=== PATIENT | female | born 1985 | race Caucasian/White ===

== ENCOUNTER 2023-10-09 15:16 | Observation (INO) | payer OTHER, SELFPAY ==
--- NOTE | ~2023-10-09 | NM_ITS ---
Lexiscan Myocardial perfusion study Indication: Chest pain, abnormal troponin Technique: The patient was brought in for a Lexiscan perfusion study on 10/11/2023 and was injected 0.4 mg of Lexiscan intravenously. Within a minute of this injection 30 mCi of sestamibi was given intravenously. Images were obtained using the SPECT gamma camera interlaced with the gating device. Images were obtained in supine position. Resting perfusion study was performed on 10/10/2023. Patient was administered 30 mCi of sestamibi intravenously at rest. Images were then obtained in supine position. Images were processed with the software and compared side to side in short axis, horizontal long axis and vertical long axis views. Total DLP 127mGy-cm. Findings: Raw acquisition reviewed. The stress perfusion study showed mildly reduced tracer uptake in the basal part of inferoseptal wall, but could also be at valve plane. No major change with CT attenuation correction. The gated study shows normal LV systolic function with calculated LVEF of 69%. LV cavity is normal in size. The gated study shows normal wall thickening and contraction of segments. Resting study shows mildly reduced tracer uptake in the basal part of inferoseptal wall, possible valve plane. Gating at rest reveals normal wall motion with ejection fraction at 61%. The findings are consistent with mild fixed basal inferoseptal defect. No clear reversible defects. NM/NM timmy perf SPECT rest & str Impression: 1. Myocardial perfusion imaging study shows no evidence of ischemia. Mild fixed basal inferoseptal defect, possibly artifactual. Less likely true nontransmural infarct. 2. Gated LVEF is 69% during stress and 61% during rest. 3. Transient ischemic dilatation not present. EKG component of the test reported separately.
--- NOTE | ~2023-10-09 | XR_ITS ---
EXAMINATION: XR CHEST CLINICAL INFORMATION: Left arm pain COMPARISON: None available. TECHNIQUE: Frontal view of the chest was obtained. FINDINGS: No significant abnormality is noted involving the heart, lungs, mediastinum, bony thorax or soft tissues. XR/XR chest 1V IMPRESSION: Unremarkable examination.
[2023-10-09 15:19] VITALS: BP 145/85; PULSE 75; RESP 18; TEMP 36.5; O2SAT 100; BMI 34.3
--- NOTE | 2023-10-09 15:20 | ED_ITS ---
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 Brown HPI narrative: 38-year-old female with history of fibromyalgia and arthritis who described herself as anxious person presented with left arm pain after an argument with her children last night, pain has been intermittent localized to the left arm feels like pressure patient also has been having numbness in the left arm the pain is associated with feeling palpitation. Patient had similar presentation few years ago in [place] patient reported that she had to stay in the hospital for 1 day rule out heart disease further records are not available at the moment. No recent travel, no lower extremity swelling or tenderness. Related Data Allergies Allergy/AdvReac Type Severity Reaction Status Date / Time No Known Allergies Allergy Verified 10/09/23 15:23 Review of Systems 2 Review of Systems: All other systems are reviewed and are negative Constitutional: Reports as per HPI and Reports no additional constitutional complaints Eyes: Reports as per HPI and Reports no additional eye complaints Reports system reviewed and no additional complaints, except as documented Cardiovascular: Reports as per HPI and Reports no additional cardiovascular complaints Respiratory: Reports as per HPI and Reports no additional respiratory complaints Gastrointestinal: Reports as per HPI and Reports no additional gastrointestinal complaints Genitourinary: Reports no additional female genitourinary complaints Musculoskeletal: Reports no additional musculoskeletal complaints Skin/Breast: Reports system reviewed and no additional complaints, except as docu Psychiatric: Reports no additional psychiatric complaints Endocrine: Reports no additional endocrine complaints Hematologic/Lymphatic: Reports no additional hematologic/lymphatic complaints Allergic/Immunologic: Reports no additional allergic/immunologic complaints Reports system reviewed and no additional complaints, except as documented and Reports Abnormal speech present [facility] Past Medical History Medical History (Updated 10/09/23 @ 22:31 by Aguila Brown MD) Hypertension Social History Social History Advance Directives: No Do you have a plan to hurt others: No Plan Physical Exam ED Vital Signs: Vital Signs - 24 hr 10/09/23 15:19 10/09/23 18:11 Temperature 97.7 F 98.3 F Pulse Rate 75 75 Respiratory Rate 18 16 Blood Pressure 145/85 H 135/84 Pulse Oximetry 100 98 Oxygen Delivery Method Room Air Room Air BMI result Body Mass Index 34.3 Vital signs have been reviewed and appear to be correct. Blood pressure elevated. Heart rate normal. Respiratory rate normal. Temperature normal. Oxygen saturation normal. Appearance: Anxious, Alert. Oriented X3. No acute distress. Head: Normal external exam. Normocephalic. Atraumatic. No Tejeda signs noted. No raccoon eyes noted Eyes: PERRLA. EOMI. Conjunctiva and sclera normal. Eyelids normal. ENT: TM's Normal. Pharynx normal. Uvula midline. Moist mucous membranes. No trismus noted. No drooling noted. No muffled voice noted. Neck: Normal inspection. Neck supple. FROM. No adenopathy. Thyroid Normal. No meningeal signs. No neck mass noted. CVS: Normal heart rate and rhythm. Heart sound normal. No murmurs noted. Pulses normal throughout. Respiratory: No respiratory distress. Painless inspiration. Breath sounds normal. No wheezes/rales/rhonchi noted. Chest nontender. No accessory muscle usage noted or decreased air movement noted. Abdomen: Soft and nontender. Bowel sounds normal in all 4 quadrants. No distention noted. No organomegaly noted. No visible injury noted. Back: No CVA tenderness. Full range of motion noted. Skin: Skin warm and dry. Normal skin color. Normal skin turgor. No rashes/lesions/lacerations noted. Extremities: No lower extremity edema. Extremities exhibit normal range of motion. Extremities nontender. Neuro: Oriented X 3. Cranial nerve exam: II-XII are grossly intact No motor deficit. No sensory deficit. Reflexes normal. Course Course Course Narrative: RME performed by Maribel Anand PA-C. Patient is a 38 year old assigned female at presenting to the emergency department with left sided arm pain and palpitations. Detailed physical exam and review of systems are deferred to the assistant prosecuting attorney. EKG, labs, imaging, and swabs ordered. Patient placed back in the waiting room pending room availability and results. Reevaluation(s) Reevaluation #1: Appear anxious person came in with left arm pain and palpitation, troponin is slightly elevated, patient with persistent left arm pain and tingling. Case discussed with Dr. Hopkins recommended to admit for observation, echo in the morning, and aspirin heparin is not recommended at the moment. Case discussed with Dr. Lynn will admit the patient. Patient noted to be anemic no old labs to compare her patient stated that she gets heavy periods due to uterine polyps that she follow with her OBGYN, otherwise patient declined rectal bleeding. Aspirin has been administrated in the emergency department. Time: 22:25 Medical Decision Making Differential Diagnosis Differential Diagnoses: The differential diagnosis associated with the presentation includes (Fibromyalgia, cervical radiculopathy, ACS, pulmonary embolism, pleural effusion, pneumothorax, pneumonia, electrolyte derangement, severe anemia.) Admission/Observation Consideration of admission/observation: Escalation of care including admission/observation considered Consult Healthcare Provider Management of the patient was discussed with: Hospitalist (Dr. Mojica) and Letter Of Credit Document Examiner (Dr. Hopkins) Lab Data MDM Lab Attestation statement: I reviewed the patient's lab results. 10/09/23 16:07 10/09/23 16:07 Labs: Lab Results 10/09/23 10/09/23 10/09/23 Range/Units 16:07 18:24 20:55 WBC 5.2 (4.8-10.8) X10*3/uL RBC 4.01 L (4.20-5.50) X10*6/uL Hgb 9.1 L (12.0-16.0) g/dl Hct 30.4 L (37.0-47.0) % MCV 75.8 L (80.0-98.0) fL MCH 22.7 L (27.0-33.0) pg MCHC 29.9 L (31.0-35.0) g/dl RDW 17.7 H (11.0-16.0) % Plt Count 365 (160-400) X10*3/uL MPV 10.0 (9.4-12.3) fL Immature Gran % (Auto) 0.2 (0.0-0.4) % Neut % (Auto) 70.5 (45-73) % Lymph % (Auto) 22.3 (20-40) % [place] % (Auto) 6.4 (2-11) % Eos % (Auto) 0.0 (0-4) % Baso % (Auto) 0.6 (0-2) % Lymph # (Auto) 1.2 (1.2-4.9) X10*3/uL [place] # (Auto) 0.3 (0.1-1.2) X10*3/uL Eos # (Auto) 0.0 (0.0-0.4) X10*3/uL Baso # (Auto) 0.0 (0.0-0.2) X10*3/uL Abs Immat Gran (auto) 0.01 (0.00-0.03) X10*3/uL Absolute Neuts (auto) 3.6 (2.0-8.3) x10*3/uL Absolute Nucleated RBC 0.000 (0.0-0.012) X10*3/uL Nucleated RBC % (auto) 0.0 (0.0-0.2) /100WBC PT 11.4 (11.1-13.3) SEC INR 0.9 (0.9-1.1) APTT 28.1 (26.0-36.8) SEC Sodium 137 (135-145) mmol/L Potassium 3.8 (3.3-5.1) mmol/L Chloride 108 (96-108) mmol/L Carbon Dioxide 23 (22-29) mmol/L Anion Gap 10 L (12-20) BUN 13 (9-16) mg/dL Creatinine 0.83 (0.5-1.4) mg/dL Estim Creat Clear Calc 103.8 Estimated GFR > 60 Random Glucose 91 (60-115) mg/dL Calcium 8.7 (8.4-10.2) mg/dL Magnesium 2.0 (1.6-2.6) mg/dL Total Bilirubin 0.4 (0.0-1.0) mg/dL AST 15 (5-31) U/L ALT 10 (0-31) U/L Alkaline Phosphatase 62 (39-117) U/L Troponin I High Sens 25.8 H 29.2 H (<3.5-17.0) ng/L Total Protein 7.5 (6.5-8.0) g/dL Albumin 4.0 (3.5-5.0) g/dL Beta HCG, Quant < 2 mIU/mL Urine Color Yellow Urine Appearance Clear Urine pH 6.5 (5.0-9.0) Ur Specific [place] <= 1.005 (1.005-1.025) Urine Protein Negative (Neg-Trace) mg/dL Urine Glucose (UA) Negative (Negative) mg/dL Urine Ketones Negative (Negative) mg/dL Urine Blood Moderate (2+) H (Negative) Urine Nitrite Negative (Negative) Ur Leukocyte Esterase Negative (Negative) Urine RBC 0-2 (0-2) /HPF Urine WBC 0-5 (0-5) /HPF Ur Squamous Epith Cells 0-2 (0-2) /HPF Urine Bacteria None Seen (None Seen) Hyaline Casts 0-2 (0-2) /LPF Influenza Type A (PCR) NEGATIVE (Negative) Influenza Type B (PCR) NEGATIVE (Negative) RSV RNA Qual (PCR) NEGATIVE (Negative) SARS-CoV-2 RNA (RT-PCR) NEGATIVE (Negative) Independent Interpretation I performed an independent interpretation of an: EKG (Normal sinus rhythm at 74 beats per minute, normal intervals, no ST-T changes.) and Plain X-Ray (Chest: No acute intrathoracic pathology.) Radiology Impression Discussion of test interpretation with radiology: I have reviewed the radiologist's reading. Chronic Conditions Patient?s care impacted by: Other (Fibromyalgia) Discharge Plan Discharge Clinical Impression: Palpitations, Atypical chest pain, Elevated troponin Patient Disposition: Admitted As Inpatient Print Language: Latvian
--- NOTE | 2023-10-09 15:21 | ECG_ITS ---
Test Reason : CP Blood Pressure : / mmHG Vent. Rate : 071 BPM Atrial Rate : 071 BPM P-R Int : 152 ms QRS Dur : 088 ms QT Int : 412 ms P-R-T Axes : 113 -04 000 degrees QTc Int : 447 ms Normal sinus rhythm Minimal voltage criteria for LVH, may be normal variant ( R in aVL ) Borderline ECG No previous ECGs available Referred By: Maribel Anand Electronically Signed By:OSMAN XIONG
[2023-10-09 16:12] LABS: MANUAL DIFF FLAG NO
[2023-10-09 16:13] LABS: Basophils Percent Auto 0.6 % (0-2); Hematocrit 30.4 % (37.0-47.0); Hemoglobin 9.1 g/dl (12.0-16.0); Imm Gran Abs Auto 0.01 X10*3/uL (0.00-0.03); Imm Gran Pct Auto 0.2 % (0.0-0.4); Lymphocytes Absolute Auto 1.2 X10*3/uL (1.2-4.9); Lymphocytes Percent Auto 22.3 % (20-40); Mean Corpuscular HGB Conc 29.9 g/dl (31.0-35.0); Mean Corpuscular Hemoglobin 22.7 pg (27.0-33.0); Mean Corpuscular Volume 75.8 fL (80.0-98.0); Monocytes Absolute Auto 0.3 X10*3/uL (0.1-1.2); Monocytes Percent Auto 6.4 % (2-11); Neutrophils Absolute Auto 3.6 x10*3/uL (2.0-8.3); Neutrophils Percent Auto 70.5 % (45-73); Platelet Count 365 X10*3/uL (160-400); Red Blood Count 4.01 X10*6/uL (4.20-5.50); Red Cell Distribution Width 17.7 % (11.0-16.0); White Blood Count 5.2 X10*3/uL (4.8-10.8)
[2023-10-09 16:18] LABS: INTERNATIONAL NORM RATIO 0.9 (0.9-1.1); Prothrombin Time 11.4 SEC (11.1-13.3)
[2023-10-09 16:21] LABS: Partial Thromboplastin Time 28.1 SEC (26.0-36.8)
[2023-10-09 16:36] LABS: Alanine Aminotransferase 10 U/L (0-31); Alkaline Phosphatase 62 U/L (39-117); Anion Gap 10 (12-20); Aspartate Amino Transferase 15 U/L (5-31); Bilirubin Total 0.4 mg/dL (0.0-1.0); Blood Urea Nitrogen 13 mg/dL (9-16); Calcium 8.7 mg/dL (8.4-10.2); Carbon Dioxide 23 mmol/L (22-29); Chloride 108 mmol/L (96-108); Creatinine Clr Calc Pharmacy 103.8; Estimated Glomerular Filt Rate > 60; Glucose Random 91 mg/dL (60-115); Potassium 3.8 mmol/L (3.3-5.1); Sodium 137 mmol/L (135-145); Total Protein 7.5 g/dL (6.5-8.0)
[2023-10-09 16:37] LABS: HCG Quantitative < 2 mIU/mL; Troponin-I High Sensitivity 25.8 ng/L (<3.5-17.0)
[2023-10-09 16:51] LABS: Influenza A PCR NEGATIVE (Negative); Influenza B PCR NEGATIVE (Negative); Resp Syncy Virus RNA Qual PCR NEGATIVE (Negative); SARS COV2 PCR INHOUSE NEGATIVE (Negative)
[2023-10-09 18:11] VITALS: BP 135/84; PULSE 75; RESP 16; TEMP 36.8; O2SAT 98
[2023-10-09 19:11] LABS: Troponin-I High Sensitivity 29.2 ng/L (<3.5-17.0)
[2023-10-09 21:07] LABS: Appearance Urine Clear; Color Urine Yellow; Glucose Urine UA Negative (Negative); Leukocyte Esterase Urine Negative (Negative); Nitrite Urine Negative (Negative); PH 6.5 (5.0-9.0); Specific Gravity - Urine <= 1.005 (1.005-1.025); UMIC TRIGGER UACC YES; Urine Blood Moderate (2+) (Negative); Urine Ketones Negative (Negative); Urine Protein Negative (Neg-Trace)
[2023-10-09 21:17] LABS: Bacteria Urine None Seen (None Seen); Hyaline Casts Urine 0-2 /LPF (0-2); RBC Urine 0-2 /HPF (0-2); Squamous Epithelial Cell Urine 0-2 /HPF (0-2); WBC Urine 0-5 /HPF (0-5)
[2023-10-09 22:08] VITALS: BP 107/62; PULSE 157; RESP 16; TEMP 36.7; O2SAT 100
--- NOTE | 2023-10-09 22:23 | ECG_ITS ---
Test Reason : TACHYCARDIA Blood Pressure : / mmHG Vent. Rate : 074 BPM Atrial Rate : 074 BPM P-R Int : 146 ms QRS Dur : 080 ms QT Int : 386 ms P-R-T Axes : 007 003 018 degrees QTc Int : 428 ms Normal sinus rhythm Normal ECG When compared with ECG of 09-OCT-2023 15:55, No significant change was found Referred By: Aguila Brown Electronically Signed By:OSMAN XIONG
--- NOTE | 2023-10-09 22:23 | P.HPHOSP_ITS ---
History of Present Illness Date of Service: 10/09/23 Chief Complaint: Arm pain This is a 38-year-old female with pertinent history of mood disorder, fibromyalgia, arthritis, deficiency anemia who presents to the emergency department for evaluation of left arm pain. Patient states it started after she had an argument with her brother yesterday. It lasted for about half an hour and subsided. On the day of presentation, patient again had an argument with the children and her pain returned in the left arm. Patient states her left arm feels heavy. No sweating, nausea or vomiting. No chest discomfort. Admits palpitations along with the left arm pain. Patient states 4 years ago she had a similar presentation and heart catheterization done in [place]. Two years ago patient's blood work revealed elevated troponin in [place] and she was admitted to the hospital. Patient left AMA before echocardiogram can be done. No fever, chills, shortness of breath, abdominal pain, changes in urinary or bowel habits. In the emergency department, troponin was found to be 25. No EKG changes. Cardiology was consulted who requested admission for observation Review of Systems 2 Constitutional: Constitutional: Reports no additional constitutional complaints Respiratory: Respiratory: Reports no additional respiratory complaints Gastrointestinal: Gastrointestinal: Reports no additional gastrointestinal complaints Genitourinary: Genitourinary: Reports no additional female genitourinary complaints [facility] Medical History Iron deficiency anemia Fibromyalgia Mood disorder Pertinent family history: No family history of early CAD Social History Advance Directives: No Do you have a plan to hurt others: No Plan Meds Allergies Allergy/AdvReac Type Severity Reaction Status Date / Time No Known Allergies Allergy Verified 10/09/23 15:23 Physical Exam 2 Vital Signs and Narrative: Vital Signs: Last Vital Signs Temp 98.3 F 10/09/23 18:11 Pulse 75 10/09/23 18:11 Resp 16 10/09/23 18:11 BP 135/84 10/09/23 18:11 Pulse Ox 98 10/09/23 18:11 O2 Del Method Room Air 10/09/23 18:11 BMI result Body Mass Index 34.3 Middle-aged female lying in bed in no distress Neck supple, no JVD Regular rate and rhythm, S1-S2 heard Regular breath sounds bilaterally, no wheezing or crackles appreciated Abdomen soft nontender, no guarding, no rigidity Patient is awake, alert and oriented to self, place, time and person ; no focal motor deficit Psych: Normal mood No pedal edema Results Labs 10/09/23 16:07 10/09/23 16:07 Labs: Laboratory Results - last 24 hr 10/09/23 10/09/23 10/09/23 16:07 18:24 20:55 MCV 75.8 L MCH 22.7 L MCHC 29.9 L RDW 17.7 H Plt Count 365 MPV 10.0 Immature Gran % (Auto) 0.2 Neut % (Auto) 70.5 Lymph % (Auto) 22.3 [place] % (Auto) 6.4 Eos % (Auto) 0.0 Baso % (Auto) 0.6 Lymph # (Auto) 1.2 [place] # (Auto) 0.3 Eos # (Auto) 0.0 Baso # (Auto) 0.0 Abs Immat Gran (auto) 0.01 Absolute Neuts (auto) 3.6 Absolute Nucleated RBC 0.000 Nucleated RBC % (auto) 0.0 PT 11.4 INR 0.9 APTT 28.1 Anion Gap 10 L Estim Creat Clear Calc 103.8 Estimated GFR > 60 Random Glucose 91 Calcium 8.7 Magnesium 2.0 Total Bilirubin 0.4 AST 15 ALT 10 Alkaline Phosphatase 62 Troponin I High Sens 25.8 H 29.2 H Total Protein 7.5 Albumin 4.0 Beta HCG, Quant < 2 Urine Color Yellow Urine Appearance Clear Urine pH 6.5 Ur Specific [place] <= 1.005 Urine Protein Negative Urine Glucose (UA) Negative Urine Ketones Negative Urine Blood Moderate (2+) H Urine Nitrite Negative Ur Leukocyte Esterase Negative Urine RBC 0-2 Urine WBC 0-5 Ur Squamous Epith Cells 0-2 Urine Bacteria None Seen Hyaline Casts 0-2 Influenza Type A (PCR) NEGATIVE Influenza Type B (PCR) NEGATIVE RSV RNA Qual (PCR) NEGATIVE SARS-CoV-2 RNA (RT-PCR) NEGATIVE Assessment and Plan (1) Elevated troponin: Status: Acute (2) Palpitations: Status: Acute Plan This is a 38-year-old female with pertinent history of mood disorder, fibromyalgia, arthritis, deficiency anemia who presents to the emergency department for evaluation of left arm pain. #. Palpitations and left arm pain. Will admit patient with cardiac monitoring. Troponin found to be 25.8>>29.2 in the ER. Cardiology was consulted in the ER who requested admission for observation. Patient given aspirin. Will trend troponin and obtain echocardiogram. Appreciate cardiology assistance #. Mood disorder: Continue home mood stabilizers #. Iron deficiency anemia due to menorrhagia: On iron supplementation Med rec pending DVT prophylaxis: Lovenox Full code Quality Stroke Does the patient have a stroke diagnosis?: No VTE Prior VTE?: No VTE Risk Level:: Medical - moderate - high VTE Device Contraindication: Treatment Not Indicated VTE Drug Contraindication: N/A - Med Ordered
[2023-10-09] MEDS: Aspirin 325 MG TABLET PO (22:41)
[2023-10-09 22:51] VITALS: PULSE 78; RESP 17; O2SAT 98
--- NOTE | 2023-10-09 22:51 | PC.NURSE ---
Reports left arm pain starting yesterday and worsening today, denies any trauma or injury. Reports she had a stressful event today and pain worsened significantly. Also reports palpitations intermittently and feeling overall unwell. Alert and oriented, breathing even and unlabored, skin warm and dry. NSR on bedside monitor tech.
[2023-10-09 23:00] LABS: D Dimer High Sensitivity 222 NG/ML
[2023-10-10] VITALS (10 sets, daily range): BP systolic 103–128; BP diastolic 63–85; PULSE 63–78; RESP 12–20; TEMP 36.5–36.7; O2SAT 97–100; BMI 35.5
--- NOTE | 2023-10-10 | CA_ITS ---
Acquisition Time: 2023-10-11 10:59:04 Total Exercise Time: 00:02:00 Test Indications: CP Medications: SEE H Protocol: LEXISCAN Max HR: 139 BPM 76% of Pred: 182 BPM Max BP: 100/062 mmHG Max Work Load: 1.0 METS Pharmaoclogical stress test with Lexiscan while sitting and kicking her legs, with mild SOB, no chest discomfort, without arrhythmias, with normotenisve response to injection, with nondiagnoisitic EKGs. Aminophylline 75mg IVP given to reverse Lexiscan. Nuclear images pending. Test reviewed with Dr. Hopkins. Referred By: Carlito Hopkins Overread By: Lissette Mckoy
[2023-10-10] MEDS: 0.9 % Sodium Chloride Flush 3 ML SYRINGE IVFLUSH ×4 (01:07→21:20)
[2023-10-10] MEDS: traMADoL HCL 50 MG TABLET PO (01:47)
--- NOTE | 2023-10-10 01:53 | PC.NURSE ---
pt reports 11/17 weird pain, hard to describe, intermittent left sided chest pain radiating under armpit. Dr. Mojica made aware, Pt medicated per JUN.
[2023-10-10 06:21] LABS: Hematocrit 29.7 % (37.0-47.0); Hemoglobin 8.7 g/dl (12.0-16.0); Mean Corpuscular HGB Conc 29.3 g/dl (31.0-35.0); Mean Corpuscular Hemoglobin 22.2 pg (27.0-33.0); Mean Corpuscular Volume 75.8 fL (80.0-98.0); Mean Platelet Volume 10.8 fL (9.4-12.3); Platelet Count 371 X10*3/uL (160-400); Red Blood Count 3.92 X10*6/uL (4.20-5.50); Red Cell Distribution Width 17.7 % (11.0-16.0); White Blood Count 6.3 X10*3/uL (4.8-10.8)
[2023-10-10 06:28] LABS: Anion Gap 12 (12-20); Blood Urea Nitrogen 12 mg/dL (9-16); Calcium 9.1 mg/dL (8.4-10.2); Carbon Dioxide 23 mmol/L (22-29); Chloride 109 mmol/L (96-108); Creatinine Clr Calc Pharmacy 100.2; Estimated Glomerular Filt Rate > 60; Glucose Random 85 mg/dL (60-115); Potassium 3.7 mmol/L (3.3-5.1); Sodium 140 mmol/L (135-145)
[2023-10-10 06:38] LABS: Troponin-I High Sensitivity 25.6 ng/L (<3.5-17.0)
--- NOTE | 2023-10-10 07:00 | CA_ITS ---
Transthoracic Echocardiogram Patient (Last, First, Middle): Lynette Sotomayor, Gender: Female Date of : 1985 Age: 38 Procedure Date: 10/10/2023 Procedure Type: Transthoracic Echocardiogram Location: ER Height: 167.64 cm Weight: 93.44 kg BSA: 2.03 m2 Heart Rate: 67 bpm BP: 121 / 74 mmHg Applications Specialist: Referring MD: Zoltan Mojica MD Symptoms: elevated troponin Study Quality: Fair ECG Rhythm: Sinus Conclusions: - The left ventricular systolic function is normal. The calculated ejection fraction is 57% by biplane method. - Possible basal inferoseptal hypokinesis in some views but cannot exclude artifactual findings. - No obvious valvular pathology seen on this study. Findings Left Ventricle Normal left ventricular cavity size. There is normal left ventricular wall thickness. The left ventricular systolic function is normal. The calculated ejection fraction is 57% by biplane method. Diastolic function is normal for age. Possible basal inferoseptal hypokinesis in some views but cannot exclude artifactual findings. Right Ventricle Normal right ventricular cavity size and systolic function. Atria Both atria are normal in size. Aortic Valve There is a normal trileaflet aortic valve. There is no aortic valve stenosis. There is no aortic valve regurgitation. Mitral Valve The mitral valve appears normal. There is trace mitral valve regurgitation. There is no mitral valve stenosis. Pulmonic Valve The pulmonic valve is likely normal. Tricuspid Valve There is trace tricuspid valve regurgitation. There is no evidence of pulmonary hypertension. Great Vessels The asc aorta is normal in size. Venous The inferior vena cava is normal in size and collapses greater than 50% with inspiration. Pericardium/Pleural There is no evidence of pericardial effusion. Prior Study Comparison No prior study available for comparison. Recommendations, Care & Conclusions No obvious valvular pathology seen on this study. Measurements 2D Linear Measurements IVSd: 1.00 0.6-0.9/0.6-1.0 cm LVIDd: 4.35 3.9-5.3/4.2-5.9 cm LVIDd Index: 2.14 2.4-3.2/2.2-3.1 cm/m2 LVIDs: 3.10 2.0-3.6 cm LVPWd: 1.00 0.7-1.1 cm LA Diam: 4.10 2.7-3.8/3.0-4.0 cm LAIDs Index: 2.02 1.5-2.3 cm/m2 LV Mass: 179.55 67-162/88-224 g LV Mass Index: 88.45 43-95/49-115 g/m2 LVOT Diam: 2.30 3.0+(-)1.3 cm 2D Systolic Function EF 4C: 61.40 >55% EF 2C: 55.60 >55% EF BiP: 57.30 >55% Mitral Valve MV Pk E: 0.77 MV PK A: 0.57 MV Decel Time: 135.00 E/A: 1.40 E'Lateral: 14.00 E'Medial: 10.60 E/E' Med: 7.20 E/E' Lat: 5.50 PHT: 39.00 MVA PHT: 5.64 Decel [place]: 5.69 Aortic Valve AoV Pk Danny: 1.28 AoV Mn Danny: 0.89 AoV VTI: 0.34 AoV Pk Grad: 7.00 Aov Mn Grad: 4.00 EUFEMIA Cont.VTI: 2.32 LVOT LVOT Pk Danny: 0.84 LVOT Mn Danny: 0.53 LVOT VTI: 0.19 LVOT Pk Grad: 3.00 LVOT Mn Grad: 1.00 LVOT Diam: 2.30 LVOT Area: 4.15 Diastolic Function MV Pk E: 0.77 MV Pk A: 0.57 E/A: 1.40 E'Medial: 10.60 E/E' Med: 7.20 E' Laterial: 14.00 E/E' Lat: 5.50 Right Ventricle TAPSE (mm): 24.90 Tricuspid Valve TR Pk Danny: 2.21 TR Pk Grad: 20.00 Great Vessels Aorta Sinus of Valsalva: 2.80 2.0-3.5 cm Ao Asc: 2.90 2.1-3.4 cm Pulmonary Valve PV Pk Danny: 0.89 Peak PV Grad: 3.00 Updated in Other Vendor System with Status of Final Carlito Hopkins MD electronically signed on 10/10/2023 9:47:11 AM with status of Final
--- NOTE | 2023-10-10 07:39 | PC.NURSE ---
pateint provided with breakfast tray, requesting to use bathroom at this time, disconnected from monitor and ambulatory with steady gait to bathroom independantly at this time
--- NOTE | 2023-10-10 07:44 | PC.NURSE ---
patient placed back on beauty advisor at this time
[2023-10-10] MEDS: Enoxaparin Sodium 40 MG/0.4 ML SYRINGE SUBCUT (08:47)
--- NOTE | 2023-10-10 09:47 | PM.CNCAR ---
History of Present Illness History of Present Illness Date of Service: 10/10/23 Chief complaint: Arm pain Narrative: This is a cardiology consultation regarding elevated troponins. Patient does not have any known cardiac issues including coronary artery disease or myocardial infarction or cardiomyopathy or in fact any other cardiac concerns. She does not have any major comorbidities. Listed to have mood disorder, fibromyalgia, arthritis and anemia. She essentially had some argument with her family and after that, had discomfort in the chest and left arm. Per documentation, there is mention of similar presentation few years back and apparently had cardiac catheterization [place] but unknown findings. Otherwise, troponins were checked and that was slightly elevated and hence she is admitted. Multiple troponin levels are flat. Currently, she states she is feeling okay. Otherwise, she does not really have any clear-cut exertional patterns, but gets some sharp nature as well as tightness type pains. Breathing is okay. Review of Systems Review of Systems: Yes all other systems are reviewed and are negative Constitutional: Constitutional: Reports as per HPI and Reports no additional constitutional complaints Eyes: Eyes: Reports as per HPI and Denies no additional eye complaints ENT: Denies system reviewed and no additional complaints, except as documented and Reports as per HPI Cardiovascular: Cardiovascular: Reports as per HPI, Reports no additional cardiovascular complaints, Denies acrocyanosis, Denies cool extremities, Reports chest pain, Denies leg edema, Denies lightheadedness, Denies palpitations and Denies dyspnea Respiratory: Respiratory: Reports as per HPI, Denies no additional respiratory complaints and Denies dyspnea Gastrointestinal: Gastrointestinal: Reports as per HPI and Denies no additional gastrointestinal complaints Genitourinary: Genitourinary: Reports as per HPI Musculoskeletal: Musculoskeletal: Reports no additional musculoskeletal complaints and Reports as per HPI Integumentary/Breasts: Skin/Breast: Reports system reviewed and no additional complaints, except as docu Neurologic: Reports system reviewed and no additional complaints, except as documented and Reports as per HPI Psychiatric: Psychiatric: Reports no additional psychiatric complaints and Reports as per HPI Endocrine: Endocrine: Reports no additional endocrine complaints, Reports as per HPI and Denies palpitations Hematologic/Lymphatic: Hematologic/Lymphatic: Reports no additional hematologic/lymphatic complaints and Reports as per HPI Allergic/Immunologic: Allergic/Immunologic: Reports no additional allergic/immunologic complaints and Reports as per HPI [facility] [place] [place] Past Medical History Medical History Iron deficiency anemia Fibromyalgia Mood disorder Family History Family History (Updated 10/10/23 @ 09:49 by Carlito Hopkins MD) Mother Hypertension Social History Social History Patient Tobacco Use Status: Never used Tobacco Smoked in Last 30 Days: No Use of substances other than those prescribed or required for medical reasons: No Advance Directives: No Do you have a plan to hurt others: No Plan Nutrition Risks: No Nutritional Risk Meds Allergies Allergy/AdvReac Type Severity Reaction Status Date / Time No Known Allergies Allergy Verified 10/09/23 15:23 Active Medications: Current Medications Acetaminophen (Acetaminophen 325 Mg Tablet) 650 mg PO Q6H PRN PRN Reason: Pain, Mild (Pain Scale 1-3), fever or headache Calcium Carbonate (Calcium Carbonate 750 Mg Tab.Chew) 750 mg PO Q4H PRN PRN Reason: Heartburn Enoxaparin Sodium (Enoxaparin Sodium 40 Mg/0.4 Ml Syringe) 40 mg SUBCUT Q24H [facility] Last Admin: 10/10/23 08:47 Dose: 40 mg Magnesium Hydroxide (Milk Of Magnesia 30 Ml Oral.Susp) 30 ml PO DAILY PRN PRN Reason: Constipation Melatonin (Melatonin 3 Mg Tablet) 6 mg PO BEDTIME PRN PRN Reason: Insomnia Sodium Chloride (0.9 % Sodium Chloride Flush 3 Ml Syringe) 3 ml IVFLUSH QSHIFT [facility] Last Admin: 10/10/23 07:37 Dose: 3 ml Physical Exam Vital Signs: Vital Signs: Last Vital Signs Temp 97.8 F 10/10/23 08:49 Pulse 70 10/10/23 08:49 Resp 18 10/10/23 08:49 BP 127/85 10/10/23 08:49 Pulse Ox 100 10/10/23 08:49 O2 Del Method Room Air 10/10/23 08:49 BMI result Body Mass Index 34.3 Const: General: comfortable and no acute distress Orientation/consciousness: patient oriented x3 HEENT: Other: Unremarkable Head: Yes normal to inspection Neck: Neck: Yes normal visual inspection Chest: Chest palpation & inspection: normal inspection of the chest Resp: Auscultation: clear to auscultation bilaterally Cardio: Palpation: normal PMI Heart sounds: S1 normal heart sound present, S2 normal heart sound present, no gallops, no murmurs and no rubs GI: Palpation (GI): Soft to palpation Back/Spine/Pelvis: Other: unremarkable Skin: General skin exam: no rashes or lesions noted Neuro: General: patient oriented x3 Extrem: General: Yes normal to inspection Psych: Mental Status: mental status grossly normal Objective Labs and Meds 10/10/23 06:04 10/10/23 06:04 Lab results: Laboratory Results - last 24 hr 10/09/23 10/09/23 10/09/23 16:07 18:24 20:55 WBC 5.2 RBC 4.01 L Hgb 9.1 L Hct 30.4 L MCV 75.8 L MCH 22.7 L MCHC 29.9 L RDW 17.7 H Plt Count 365 MPV 10.0 Immature Gran % (Auto) 0.2 Neut % (Auto) 70.5 Lymph % (Auto) 22.3 [place] % (Auto) 6.4 Eos % (Auto) 0.0 Baso % (Auto) 0.6 Lymph # (Auto) 1.2 [place] # (Auto) 0.3 Eos # (Auto) 0.0 Baso # (Auto) 0.0 Abs Immat Gran (auto) 0.01 Absolute Neuts (auto) 3.6 Absolute Nucleated RBC 0.000 Nucleated RBC % (auto) 0.0 PT 11.4 INR 0.9 APTT 28.1 D-Dimer High Sensitivty 222 Sodium 137 Potassium 3.8 Chloride 108 Carbon Dioxide 23 Anion Gap 10 L BUN 13 Creatinine 0.83 Estim Creat Clear Calc 103.8 Estimated GFR > 60 Random Glucose 91 Calcium 8.7 Magnesium 2.0 Total Bilirubin 0.4 AST 15 ALT 10 Alkaline Phosphatase 62 Troponin I High Sens 25.8 H 29.2 H Total Protein 7.5 Albumin 4.0 Beta HCG, Quant < 2 Urine Color Yellow Urine Appearance Clear Urine pH 6.5 Ur Specific [place] <= 1.005 Urine Protein Negative Urine Glucose (UA) Negative Urine Ketones Negative Urine Blood Moderate (2+) H Urine Nitrite Negative Ur Leukocyte Esterase Negative Urine RBC 0-2 Urine WBC 0-5 Ur Squamous Epith Cells 0-2 Urine Bacteria None Seen Hyaline Casts 0-2 Influenza Type A (PCR) NEGATIVE Influenza Type B (PCR) NEGATIVE RSV RNA Qual (PCR) NEGATIVE SARS-CoV-2 RNA (RT-PCR) NEGATIVE 10/10/23 06:04 WBC 6.3 RBC 3.92 L Hgb 8.7 L Hct 29.7 L MCV 75.8 L MCH 22.2 L MCHC 29.3 L RDW 17.7 H Plt Count 371 MPV 10.8 Immature Gran % (Auto) Neut % (Auto) Lymph % (Auto) [place] % (Auto) Eos % (Auto) Baso % (Auto) Lymph # (Auto) [place] # (Auto) Eos # (Auto) Baso # (Auto) Abs Immat Gran (auto) Absolute Neuts (auto) Absolute Nucleated RBC 0.000 Nucleated RBC % (auto) 0.0 PT INR APTT D-Dimer High Sensitivty Sodium 140 Potassium 3.7 Chloride 109 H Carbon Dioxide 23 Anion Gap 12 BUN 12 Creatinine 0.86 Estim Creat Clear Calc 100.2 Estimated GFR > 60 Random Glucose 85 Calcium 9.1 Magnesium Total Bilirubin AST ALT Alkaline Phosphatase Troponin I High Sens 25.6 H Total Protein Albumin Beta HCG, Quant Urine Color Urine Appearance Urine pH Ur Specific [place] Urine Protein Urine Glucose (UA) Urine Ketones Urine Blood Urine Nitrite Ur Leukocyte Esterase Urine RBC Urine WBC Ur Squamous Epith Cells Urine Bacteria Hyaline Casts Influenza Type A (PCR) Influenza Type B (PCR) RSV RNA Qual (PCR) SARS-CoV-2 RNA (RT-PCR) ECG Interpretation: EKG shows underlying sinus rhythm at 71/Min; minimal criteria for LVH but otherwise unremarkable. Normal HI and corrected QT. Imaging Radiologist's impression: Impressions Chest X-Ray 10/09/23 22:30 IMPRESSION: Unremarkable examination. Assessment and Plan (1) Precordial chest pain: Status: Acute (2) Iron deficiency anemia: Status: Acute (3) Elevated troponin: Status: Acute Plan Labs show hemoglobin of 8.7. Troponin levels are 25.8, 29.2 and 25.6. Baseline EKG is not showing any clear-cut ischemic findings. Atypical sounding chest pain with very slight but flat troponin levels. Echocardiogram shows preserved LVEF. Possible basal inferoseptal hypokinesis seen in some views. Overall, uncertain etiology for the chest pain. Possible vasospasm. Highly doubt any underlying CAD/plaque rupture. Slight troponin leak could also be from this significant anemia/myocardial stress. Will need some ischemia work up; will check feasiblility of in vs outpt. Otherwise, she seems stable. Procedures Date of Service Date of Service: 10/10/23
--- NOTE | 2023-10-10 09:48 | PM.DS ---
DS: Providers Provider Date of Service: 10/10/23 Date of admission: 10/09/23 22:21 Primary care physician: Chaparrita Godinez MD Consults: 10/09/23 22:21 Consult to Cardiology Routine Consulting Provider: [facility] Reason for consultation: arm pain Has provider been notified: Yes DS: Diagnosis Discharge Diagnosis (1) Elevated troponin: Status: Acute (2) Palpitations: Status: Acute DS: Summary Hospital Course Hospital Course: admission hpi Chief Complaint: Arm pain This is a 38-year-old female with pertinent history of mood disorder, fibromyalgia, arthritis, deficiency anemia who presents to the emergency department for evaluation of left arm pain. Patient states it started after she had an argument with her brother yesterday. It lasted for about half an hour and subsided. On the day of presentation, patient again had an argument with the children and her pain returned in the left arm. Patient states her left arm feels heavy. No sweating, nausea or vomiting. No chest discomfort. Admits palpitations along with the left arm pain. Patient states 4 years ago she had a similar presentation and heart catheterization done in [place]. Two years ago patient's blood work revealed elevated troponin in [place] and she was admitted to the hospital. Patient left AMA before echocardiogram can be done. No fever, chills, shortness of breath, abdominal pain, changes in urinary or bowel habits. In the emergency department, troponin was found to be 25. No EKG changes. Cardiology was consulted who requested admission for observation hospital course:Patient presented with left arm pain and tingling, she states that tingling in the hand has been ongoing for years. Troponin was indeterminate and flat 25 to 29 and normal ECG. Echo was reported as follow Normal left ventricular cavity size. There is normal left ventricular wall thickness. The left ventricular systolic function is normal. The calculated ejection fraction is 57% by biplane method. Diastolic function is normal for age. Possible basal inferoseptal hypokinesis in some views but cannot exclude artifactual findings. She was seen by cardiology and started on ASA, and Imdur. The next day she underwent Stress MIBI showing no evidence of ischemia and gated EF of 69%. To have further testing with possible coronary CT on outpatient basis. As for the tingling and pain in the arm, Neurology recommends conservative management and if persists then cervical MRI. Will prescribe Neurontin 100 bid Time Attestation Discharge Coordination Time (in mins): 30 Quality: Safe Use of Opioids Does Pt have an Active Cancer Diagnosis on the Problem List?: No Quality: Stroke Does the patient have a stroke diagnosis?: No Physical Exam Vital Signs: Vital Signs: Last Vital Signs Temp 97.8 F 10/10/23 08:49 Pulse 70 10/10/23 08:49 Resp 18 10/10/23 08:49 BP 127/85 10/10/23 08:49 Pulse Ox 100 10/10/23 08:49 O2 Del Method Room Air 10/10/23 08:49 BMI result Body Mass Index 34.3 General: AO X 3, no acute distress Resp: CTA bilateral CVS: S1,S2,RRR GI: +BS, NT, no distention Skin: No rash Neuro: motor grossly intact Psych: appropriate affect DS: Data Data Completed and Pending Labs on day of discharge: Laboratory Results - last 24 hr 10/09/23 10/09/23 10/09/23 16:07 18:24 20:55 WBC 5.2 RBC 4.01 L Hgb 9.1 L Hct 30.4 L MCV 75.8 L MCH 22.7 L MCHC 29.9 L RDW 17.7 H Plt Count 365 MPV 10.0 Immature Gran % (Auto) 0.2 Neut % (Auto) 70.5 Lymph % (Auto) 22.3 [place] % (Auto) 6.4 Eos % (Auto) 0.0 Baso % (Auto) 0.6 Lymph # (Auto) 1.2 [place] # (Auto) 0.3 Eos # (Auto) 0.0 Baso # (Auto) 0.0 Abs Immat Gran (auto) 0.01 Absolute Neuts (auto) 3.6 Absolute Nucleated RBC 0.000 Nucleated RBC % (auto) 0.0 PT 11.4 INR 0.9 APTT 28.1 D-Dimer High Sensitivty 222 Sodium 137 Potassium 3.8 Chloride 108 Carbon Dioxide 23 Anion Gap 10 L BUN 13 Creatinine 0.83 Estim Creat Clear Calc 103.8 Estimated GFR > 60 Random Glucose 91 Calcium 8.7 Magnesium 2.0 Total Bilirubin 0.4 AST 15 ALT 10 Alkaline Phosphatase 62 Troponin I High Sens 25.8 H 29.2 H Total Protein 7.5 Albumin 4.0 Beta HCG, Quant < 2 Urine Color Yellow Urine Appearance Clear Urine pH 6.5 Ur Specific [place] <= 1.005 Urine Protein Negative Urine Glucose (UA) Negative Urine Ketones Negative Urine Blood Moderate (2+) H Urine Nitrite Negative Ur Leukocyte Esterase Negative Urine RBC 0-2 Urine WBC 0-5 Ur Squamous Epith Cells 0-2 Urine Bacteria None Seen Hyaline Casts 0-2 Influenza Type A (PCR) NEGATIVE Influenza Type B (PCR) NEGATIVE RSV RNA Qual (PCR) NEGATIVE SARS-CoV-2 RNA (RT-PCR) NEGATIVE 10/10/23 06:04 WBC 6.3 RBC 3.92 L Hgb 8.7 L Hct 29.7 L MCV 75.8 L MCH 22.2 L MCHC 29.3 L RDW 17.7 H Plt Count 371 MPV 10.8 Immature Gran % (Auto) Neut % (Auto) Lymph % (Auto) [place] % (Auto) Eos % (Auto) Baso % (Auto) Lymph # (Auto) [place] # (Auto) Eos # (Auto) Baso # (Auto) Abs Immat Gran (auto) Absolute Neuts (auto) Absolute Nucleated RBC 0.000 Nucleated RBC % (auto) 0.0 PT INR APTT D-Dimer High Sensitivty Sodium 140 Potassium 3.7 Chloride 109 H Carbon Dioxide 23 Anion Gap 12 BUN 12 Creatinine 0.86 Estim Creat Clear Calc 100.2 Estimated GFR > 60 Random Glucose 85 Calcium 9.1 Magnesium Total Bilirubin AST ALT Alkaline Phosphatase Troponin I High Sens 25.6 H Total Protein Albumin Beta HCG, Quant Urine Color Urine Appearance Urine pH Ur Specific [place] Urine Protein Urine Glucose (UA) Urine Ketones Urine Blood Urine Nitrite Ur Leukocyte Esterase Urine RBC Urine WBC Ur Squamous Epith Cells Urine Bacteria Hyaline Casts Influenza Type A (PCR) Influenza Type B (PCR) RSV RNA Qual (PCR) SARS-CoV-2 RNA (RT-PCR) Discharge Plan Discharge Anticipated Discharge Date/Time: 10/10/23 09:46 Patient Disposition: Home, Self-Care Discharge Diagnosis: elevated troponin Referrals: Chaparrita Godinez MD [Primary Care Provider] - 1 Week Discharge Medications: New gabapentin [Neurontin] 100 mg capsule 100 mg PO BID Qty: 60 0RF Continued desogestrel-ethinyl estradiol [Apri] 0.15-0.03 mg tablet 1 tab PO DAILY sulindac 150 mg tablet 150 mg PO BID PRN (Reason: Pain) acetaminophen 650 mg tablet extended release 650 mg PO BID PRN (Reason: Pain) sertraline 50 mg tablet 50 mg PO DAILY Discharge Orders: Discharge Order (Routine); Ordered 10/11/23 Ordered By: Memo Albert Diet: Advance to usual diet Activity on Discharge: As tolerated Stand Alone Forms: Patient Portal Discharge page, Work/School Release Print Language: Kinyarwanda Care Plan Goals: full cardiac work up Health Concerns: elevated troponin pain and tingling in hands Plan of Treatment: follow up with cushion installer and your Doctor take Neurontin for pain in the arm Assessment: see above Discharge Date/Time: 10/11/23 17:06
[2023-10-10] MEDS: Isosorbide Mononitrate 30 MG TAB.ER.24H 15 MG PO (10:15)
[2023-10-10] MEDS: Aspirin Enteric Coated 81 MG TABLET.DR PO (10:16)
--- NOTE | 2023-10-10 10:44 | PHA.MEDREC ---
Pharmacy Consult ? Medication Reconciliation Pharmacy has completed the medication reconciliation. Spoke to patient via blending tank tender and confirmed medication list. She said she takes apap and sulindac as needed only.
--- NOTE | 2023-10-10 13:37 | PC.NURSE ---
patient to be transported to nuclear medicine at this time
--- NOTE | 2023-10-10 14:05 | PC.NURSE ---
patient returned from nuclear medicine at this time, placed back on monitor worker
[2023-10-10] MEDS: Sertraline HCL 50 MG TABLET PO (16:25)
[2023-10-10] MEDS: Acetaminophen 325 MG TABLET 650 MG PO (16:28)
[2023-10-11] VITALS: BP 124/62; PULSE 67; RESP 16; TEMP 36.3; O2SAT 96
[2023-10-11] MEDS: Acetaminophen 325 MG TABLET 650 MG PO ×2 (03:27→12:22)
[2023-10-11 04:00] VITALS: BP 115/66; PULSE 70; RESP 20; TEMP 36.5; O2SAT 98
[2023-10-11 07:33] VITALS: BP 107/54; PULSE 71; RESP 18; TEMP 36.6; O2SAT 97
[2023-10-11] MEDS: Isosorbide Mononitrate 30 MG TAB.ER.24H 15 MG PO (08:09)
[2023-10-11] MEDS: DESOGESTREL ETHINYL ESTRADIOL 1 EACH PO (08:09)
[2023-10-11] MEDS: Sertraline HCL 50 MG TABLET PO (08:10)
[2023-10-11] MEDS: Enoxaparin Sodium 40 MG/0.4 ML SYRINGE SUBCUT (08:10)
[2023-10-11] MEDS: Aspirin Enteric Coated 81 MG TABLET.DR PO (08:10)
--- NOTE | 2023-10-11 08:40 | MHC.CM.PN ---
Pt lives with family, she is independent, no home health services, no DME. HCP discussed and pt declined to complete. She is able to get transport home at [place]. PCP confirmed: Chaparrita Godinez. DCP: home self care, CM to follow for DC needs.
--- NOTE | 2023-10-11 11:19 | PM.PNCARD ---
Subjective Subjective Date of Service: 10/11/23 Interval history: She still has some off and on pains in the chest and arm but sounds very atypical. Etiology is unclear. Borderline troponin elevation yesterday. Also anemia. Review of Systems Review of Systems Yes all other systems are reviewed and are negative Constitutional: Reports as per HPI and Reports no additional constitutional complaints Eyes: Reports as per HPI and Denies no additional eye complaints Denies system reviewed and no additional complaints, except as documented and Reports as per HPI Cardiovascular: Reports as per HPI, Reports no additional cardiovascular complaints, Denies acrocyanosis, Denies cool extremities, Reports chest pain, Denies leg edema, Denies lightheadedness, Denies palpitations and Denies dyspnea Respiratory: Reports as per HPI, Denies no additional respiratory complaints and Denies dyspnea Gastrointestinal: Reports as per HPI and Denies no additional gastrointestinal complaints Genitourinary: Reports as per HPI Musculoskeletal: Reports no additional musculoskeletal complaints and Reports as per HPI Skin/Breast: Reports system reviewed and no additional complaints, except as docu Reports system reviewed and no additional complaints, except as documented and Reports as per HPI Psychiatric: Reports no additional psychiatric complaints and Reports as per HPI Endocrine: Reports no additional endocrine complaints, Reports as per HPI and Denies palpitations Hematologic/Lymphatic: Reports no additional hematologic/lymphatic complaints and Reports as per HPI Allergic/Immunologic: Reports no additional allergic/immunologic complaints and Reports as per HPI Physical Exam Vital Signs: Last Vital Signs Temp 97.8 F 10/11/23 07:33 Pulse 71 10/11/23 07:33 Resp 18 10/11/23 07:33 BP 107/54 L 10/11/23 07:33 Pulse Ox 97 10/11/23 07:33 O2 Del Method Room Air 10/11/23 07:33 BMI result Body Mass Index 35.5 Const General: comfortable and no acute distress Orientation/consciousness: patient oriented x3 HEENT Other: Unremarkable Head: Yes normal to inspection Neck Neck: Yes normal visual inspection Chest Chest palpation & inspection: normal inspection of the chest Resp Auscultation: clear to auscultation bilaterally Cardio Palpation: normal PMI Heart sounds: S1 normal heart sound present, S2 normal heart sound present, no gallops, no murmurs and no rubs GI Palpation (GI): Soft to palpation Back/Spine/Pelvis Other: unremarkable Skin General skin exam: no rashes or lesions noted Neuro General: patient oriented x3 Extrem General: Yes normal to inspection Psych Mental Status: mental status grossly normal Objective Labs and Meds 10/10/23 06:04 10/10/23 06:04 Progress Note: A&P Assessment and plan (1) Precordial chest pain: Status: Acute (2) Iron deficiency anemia: Status: Acute (3) Elevated troponin: Status: Acute Plan Pertinent studies reviewed. Labs show anemia. Troponin levels are slightly abnormal but not too high. EKG without any clear-cut ischemic changes. Echocardiogram with possible basal inferoseptal hypokinesis in some views but otherwise unremarkable. Overall, atypical chest pain, very slight troponin elevation and question of wall motion abnormality on echocardiogram. Will check stress test and go from there. Possible outpt coronary CTA. Discussed with Dr. Albert. Time Spent With Patient Time: Total time managing care of this patient today 42 minutes. This includes time spent in review of chart, laboratory data, imaging studies, review of telemetry, counseling patient, discussion with hospitalist, RN, documentation, coordination of care. Progress Note: Quality Stroke Does the patient have a stroke diagnosis?: No Procedures Date of Service Date of Service: 10/11/23
[2023-10-11 12:00] VITALS: BP 104/67; PULSE 80; RESP 20; TEMP 36.8; O2SAT 100
--- NOTE | 2023-10-11 12:30 | PC.NURSE ---
1222 Pt received PRN Tylenol 650mg per pt request
--- NOTE | 2023-10-11 14:32 | PM.NEUROCN ---
History of Present Illness Data of Consult Service Date: 10/11/23 Primary Care Provider: Chaparrita Godinez MD [facility] Reason for consult: Left upper extremity tingling and pain This is a 38-year-old female with history of mood disorder, fibromyalgia, arthritis, iron deficiency anemia who presented to the emergency department for evaluation of left arm pain. Patient states it started after she had an argument with her brother yesterday. It lasted for about half an hour and subsided. On the day of presentation, patient again had an argument with the children and her pain returned in the left arm. Patient states her left arm feels heavy. No sweating, nausea or vomiting. No chest discomfort. Admits palpitations along with the left arm pain. Patient states 4 years ago she had a similar presentation and heart catheterization done in [place]. Two years ago patient's blood work revealed elevated troponin in [place] and she was admitted to the hospital. I was asked to evaluate her for possible cervical myelopathy PMFSH Past Medical History Medical History Iron deficiency anemia Fibromyalgia Mood disorder Family History Family History Mother Hypertension Social History Social History Household Members: Friend(s) Housing: Apartment Do you presently have visiting nurse or other home services: No Patient Tobacco Use Status: Never used Tobacco service: No Meds Allergies Allergy/AdvReac Type Severity Reaction Status Date / Time No Known Allergies Allergy Verified 10/09/23 15:23 Active Medications: Current Medications Acetaminophen (Acetaminophen 325 Mg Tablet) 650 mg PO Q6H PRN PRN Reason: Pain, Mild (Pain Scale 1-3), fever or headache Last Admin: 10/11/23 12:22 Dose: 650 mg Aspirin (Aspirin Enteric Coated 81 Mg Tablet.Dr) 81 mg PO DAILY [facility] Last Admin: 10/11/23 08:10 Dose: 81 mg Calcium Carbonate (Calcium Carbonate 750 Mg Tab.Chew) 750 mg PO Q4H PRN PRN Reason: Heartburn Enoxaparin Sodium (Enoxaparin Sodium 40 Mg/0.4 Ml Syringe) 40 mg SUBCUT Q24H [facility] Last Admin: 10/11/23 08:10 Dose: 40 mg Isosorbide Mononitrate (Isosorbide Mononitrate 30 Mg Tab.Er.24h) 15 mg PO DAILY [facility]; Protocol Last Admin: 10/11/23 08:09 Dose: 15 mg Magnesium Hydroxide (Milk Of Magnesia 30 Ml Oral.Susp) 30 ml PO DAILY PRN PRN Reason: Constipation Melatonin (Melatonin 3 Mg Tablet) 6 mg PO BEDTIME PRN PRN Reason: Insomnia Pt Own (Desogestrel- Ethinyl Estradiol [ Apri] 0.15-0.03 Mg Tablet) 1 tab PO DAILY [facility] Last Admin: 10/11/23 08:09 Dose: 1 tab Sertraline HCl (Sertraline Hcl 50 Mg Tablet) 50 mg PO DAILY [facility] Last Admin: 10/11/23 08:10 Dose: 50 mg Sodium Chloride (0.9 % Sodium Chloride Flush 3 Ml Syringe) 3 ml IVFLUSH QSHIFT [facility] Last Admin: 10/11/23 10:28 Dose: Not Given Home Medications ?Medication ?Instructions ?Recorded ?Confirmed ?Last Taken ?Type acetaminophen 650 mg 650 mg PO BID PRN Pain 10/10/23 10/10/23 Unknown History tablet,extended release desogestrel 0.15 mg-ethinyl 1 tab PO DAILY 10/10/23 10/10/23 10/08/23 History estradiol 0.03 mg tablet (Apri) sertraline 50 mg tablet 50 mg PO DAILY 10/10/23 10/10/23 10/09/23 History sulindac 150 mg tablet 150 mg PO BID PRN Pain 10/10/23 10/10/23 Unknown History Physical Exam Vital Signs: Vital Signs: Last Vital Signs Temp 98.2 F 10/11/23 12:00 Pulse 80 10/11/23 12:00 Resp 20 10/11/23 12:00 BP 104/67 10/11/23 12:00 Pulse Ox 100 10/11/23 12:00 O2 Del Method Room Air 10/11/23 12:00 BMI result Body Mass Index 35.5 Neuro: Other: Her neurological examination is nonfocal. There is no hyperreflexia. Plantar response are flexor. Results Labs 10/10/23 06:04 10/10/23 06:04 Assessment and Plan (1) Fibromyalgia: Status: Acute Her exam is unremarkable with no evidence of cervical myelopathy and no convincing evidence of cervical radiculopathy. Recommendation Will treat symptomatically. Reassured. If symptoms persist, an outpatient cervical spine MRI can be done Procedures Date of Service Date of Service: 10/11/23
--- NOTE | 2023-10-11 15:09 | PC.NURSE ---
Only tylenol ordered. Patient was content with tylenol.
[2023-10-11 15:19] VITALS: BP 108/66; PULSE 73; RESP 20; TEMP 36.4; O2SAT 97
--- NOTE | 2023-10-13 07:01 | P.PNIM_ITS ---
Subjective Subjective Date of Service: 10/13/23 Interval History: c/o left arm pain and ting in the left arm that had been on going for long time Physical Exam 2 Vital Signs: Vital Signs: Last Vital Signs Temp 97.6 F 10/11/23 15:19 Pulse 73 10/11/23 15:19 Resp 20 10/11/23 15:19 BP 108/66 10/11/23 15:19 Pulse Ox 97 10/11/23 15:19 O2 Del Method Room Air 10/11/23 15:19 BMI result Body Mass Index 35.5 General: AO X 3, no acute distress Resp: CTA bilateral CVS: S1,S2,RRR GI: +BS, NT, no distention Skin: No rash Neuro: motor grossly intact, no appreciable deficit Psych: appropriate affect Objective Data Labs 10/10/23 06:04 10/10/23 06:04 Assessment and Plan (1) Atypical chest pain: Status: Acute Plan This is a 38-year-old female with pertinent history of mood disorder, fibromyalgia, arthritis, deficiency anemia who presents to the emergency department for evaluation of left arm pain. Palpitations and left arm pain, mild increase in troponin -getting echo, cardiology advises ASA and imdur and stress before dc left arm tingling and pain--will consider Neuro eval Mood disorder: Continue home mood stabilizers Iron deficiency anemia due to menorrhagia: On iron supplementation DVT prophylaxis: Lovenox Quality Stroke Does the patient have a stroke diagnosis?: No VTE Prior VTE?: No VTE Risk Level:: Medical - moderate - high VTE Device Contraindication: Treatment Not Indicated VTE Drug Contraindication: N/A - Med Ordered
== END 2023-10-11 17:06 | disposition home or self-care (01) ==
LOC: HO.ED 22:31 → HO.EDOVER 22:42 → HO.IMC 10-10 19:46
PROVIDERS: Physician Assistant Medical; Admitting Provider Student in an Organized Health Care Education/Training Program; Emergency Provider Emergency Medicine; PCP Internal Medicine; Visit Provider Internal Medicine
DX: R79.89 Other specified abnormal findings of blood chemistry (principal); R00.2 Palpitations; R07.2 Precordial pain; D50.9 Iron deficiency anemia, unspecified; M79.7 Fibromyalgia; R07.89 Other chest pain; M79.602 Pain in left arm; Z03.818 Encounter for observation for suspected exposure to other biological agents ruled out; Z53.29 Procedure and treatment not carried out because of patient's decision for other reasons
CPT/HCPCS: 0241U; 36415; 71045; 78452; 80048; 80053; 81001; 83735; 84484; 84702; 85025; 85027; 85379; 85610; 85730; 93005; 93017; 93306; 96372; 99222; 99285; A9500; J0280; J1650; J2785; Q9957

== ENCOUNTER 2023-10-09 22:21 | Outpatient (BNV) | payer OTHER, SELFPAY | END 2023-10-10 07:00 | PROVIDERS: Admitting Provider Student in an Organized Health Care Education/Training Program; Emergency Provider Emergency Medicine; PCP Internal Medicine; Visit Provider Internal Medicine | DX: I36.1 Nonrheumatic tricuspid (valve) insufficiency (principal) | CPT/HCPCS: 78452; 93016; 93018; 93350 ==

== ENCOUNTER → 2023-10-09 22:21 | Outpatient (BNV) | payer OTHER, SELFPAY | PROVIDERS: Admitting Provider Student in an Organized Health Care Education/Training Program; Emergency Provider Emergency Medicine; PCP Internal Medicine; Visit Provider Internal Medicine | DX: R07.2 Precordial pain (principal); D50.9 Iron deficiency anemia, unspecified; R79.89 Other specified abnormal findings of blood chemistry; R94.31 Abnormal electrocardiogram [ECG] [EKG]; R00.0 Tachycardia, unspecified | CPT/HCPCS: 93010; 99223; 99233 ==

== ENCOUNTER → 2023-10-09 22:21 | Outpatient (BNV) | payer OTHER, SELFPAY | PROVIDERS: Admitting Provider Student in an Organized Health Care Education/Training Program; Emergency Provider Emergency Medicine; PCP Internal Medicine; Visit Provider Student in an Organized Health Care Education/Training Program | DX: R79.89 Other specified abnormal findings of blood chemistry (principal); R00.2 Palpitations | CPT/HCPCS: 99222; 99238 ==

== ENCOUNTER → 2023-10-09 22:21 | Outpatient (BNV) | payer OTHER, SELFPAY | PROVIDERS: Admitting Provider Student in an Organized Health Care Education/Training Program; Emergency Provider Emergency Medicine; PCP Internal Medicine; Visit Provider Psychiatry & Neurology Neurology | DX: M79.7 Fibromyalgia (principal) | CPT/HCPCS: 99222 ==